=== PATIENT | male | born 1940 | race Caucasian/White ===

== ENCOUNTER 2017-11-02 22:42 | Emergency (ER) | payer MEDICARE ==
[~2017-11-02] VITALS: Ht 172.7 cm; Wt 75.0 kg
[2017-11-02 22:55] VITALS: Ht 172.7 cm; Wt 75.0 kg
[2017-11-02] MEDS ORDERED: GLUCOPHAGE500 MG PO (22:57)
[2017-11-02] MEDS ORDERED: VASOTEC2.5 MG PO (22:57)
[2017-11-02] MEDS ORDERED: TENORMIN25 MG PO (22:57)
[2017-11-02] MEDS ORDERED: GLUCOTROL 5 MG T5 MG PO (22:58)
[2017-11-02] MEDS ORDERED: ELIQUIS5 MG PO (22:58)
[2017-11-02] MEDS ORDERED: EFFEXOR75 MG PO (22:59)
[2017-11-02] MEDS ORDERED: LOVASTATIN20 MG PO (22:59)
[2017-11-02] MEDS ORDERED: FLOMAX0.4 MG PO (22:59)
[2017-11-02 23:32] LABS: APPEARANCE CLEAR (CLEAR); BILIRUBIN NEGATIVE (NEGATIVE); COLOR DK YELLOW (YELLOW); GLUCOSE 500 mg/dL (NEGATIVE); KETONE SMALL mg/dL (NEGATIVE); NITRITE NEGATIVE (NEGATIVE); PROTEIN 1+ mg/dL (NEGATIVE); UROBILINOGEN NORMAL (NORMAL)
[2017-11-02 23:41] LABS: BACTERIA FEW /hpf (NONE SEEN); EPITHELIAL CELLS RARE /hpf (0-5); MUCUS >1+ /lpf (NONE SEEN); RED CELLS - URINE 0-5 /hpf (0-5); WHITE CELLS - URINE OCC /hpf (0-5)
[2017-11-02 23:44] LABS: GRANULAR CAST RARE /lpf (NONE SEEN); HYALINE CAST 0-5 /lpf (NONE SEEN)
[2017-11-02 23:52] LABS: BASOPHILS 0.3 % (0-2); EOSINOPHILS 0.6 % (0-7); HEMATOCRIT 38.4 % (42.0-54.0); HEMOGLOBIN 13.3 g/dL (13.5-17.5); IMMATURE GRANULOCYTES 0.2 % (0-5); LYMPHOCYTES 11.3 % (15-50); MCH 28.5 pg (26.0-34.0); MCHC 34.6 g/dL (31.0-37.0); MCV 82.4 fL (80.0-100.0); MEAN PLATELET VOLUME 9.2 fL (7.4-10.4); MONOCYTES 8.9 % (2-11); NEUTROPHILS 78.7 % (40-80); PLATELET COUNT 146 10x3/uL (130-400); RBC 4.66 10x6/uL (4.20-6.10); RDW 13.2 % (11.5-14.5); WBC 6.3 10x3/uL (4.8-10.8)
[2017-11-03 00:06] LABS: ALBUMIN 3.3 g/dL (3.4-5.0); ALKALINE PHOSPHATASE 69 U/L (46-116); ALT (SGPT) 19 U/L (10-68); CALC OSMOLALITY 267 mosm/kg (275-300); CALCIUM 8.8 mg/dL (8.5-10.1); CHLORIDE - SERUM 96 mmol/L (98-107); CREATININE - SERUM 1.1 mg/dL (0.6-1.3); POTASSIUM - SERUM 4.3 mmol/L (3.5-5.1); PROTEIN - SERUM 7.7 g/dL (6.4-8.2); SODIUM 128 mmol/L (136-145); UREA NITROGEN 16 mg/dL (7-18); eGFR NON AFRICAN AMERICAN 68 mL/min (90-120)
[2017-11-03 00:07] LABS: GLUCOSE 284 mg/dL (74-106)
[2017-11-03 00:09] LABS: C-REACTIVE PROTEIN 9.5 mg/dL (0.0-0.9); TROPONIN-I < 0.017 ng/mL (0.000-0.060)
[2017-11-03] MEDS ORDERED: VIBRAMYCIN 100100 MG PO (00:25)
[2017-11-03 02:33] VITALS: BP 160/76
[2017-11-10 21:05] LABS: RMSF IGM 0.36 index (0.00-0.89)
[2017-11-12 11:18] LABS: LYME WB - IGG P18 AB Absent (()); LYME WB - IGG P23 AB Absent (()); LYME WB - IGG P28 AB Absent (()); LYME WB - IGG P30 AB Absent (()); LYME WB - IGG P39 AB Absent (()); LYME WB - IGG P41 AB Absent (()); LYME WB - IGG P45 AB Absent (()); LYME WB - IGG P58 AB Absent (()); LYME WB - IGG P66 AB Absent (()); LYME WB - IGG P93 AB Absent (()); LYME WB - IGG WB INTERP Negative (()); LYME WB - IGM P23 AB Absent (()); LYME WB - IGM P39 AB Absent (()); LYME WB - IGM P41 AB Absent (()); LYME WB - IGM WB INTERP Negative (())
[2017-11-13 14:30] LABS: F. TULARENSIS - IGG Negative (()); F. TULARENSIS - IGM Negative (())
== END 2017-11-03 02:33 | disposition home or self-care (01) ==
LOC: D.ER 22:42
PROVIDERS: Family Medicine
DX: R73.9 Hyperglycemia, unspecified (principal); A79.9 Rickettsiosis, unspecified; M79.605 Pain in left leg; M79.604 Pain in right leg; I10 Essential (primary) hypertension